=== PATIENT | female | born 1980 | race Caucasian/White ===

== ENCOUNTER 2020-02-13 08:55 | Emergency (ER) | payer MEDICAID ==
[~2020-02-13] VITALS: Ht 165.1 cm; Wt 95.3 kg
[2020-02-13 09:02] VITALS: BP 135/96
--- NOTE | 2020-02-13 09:09 | NUR ---
WAIT AT LOBBY
--- NOTE | 2020-02-13 09:35 | NUR ---
PT AMBULATE TO BED 12 WITH EVEN AND STEADY GAIT
--- NOTE | 2020-02-13 10:00 | NUR ---
PT PRESENTS WITH RIGHT HAND PAIN X 3 DAYS. PT STATES THAT IT STARTED TO SWELL, DENIES TRAUMA. RADIAL PULSE +3, CAP REFILL < 3 SEC. LIMITED ROM. PT AOX4, BREATHING EVEN AND UNLABORED, SKIN WARM AND DRY. BED IN LOWEST POSIITON, LOCKED, BED RAIL UPX1.
--- NOTE | 2020-02-13 10:15 | NUR ---
APPLIED MARGARET WRAP TO RIGHT WRIST WITHOUT ANY ISSUES
--- NOTE | 2020-02-13 10:26 | NUR ---
RADIAL PULSE + 3, CAP REFILL < 3 SEC AFTER WRAP BY EMT
[2020-02-13 10:30] VITALS: BP 135/96
== END 2020-02-13 10:30 | disposition home or self-care (01) ==
LOC: MED 08:55
DX: M79.89 Other specified soft tissue disorders (principal)
CPT/HCPCS: 81025; 99283

== ENCOUNTER 2022-02-25 18:52 | Emergency (ER) | payer MEDICAID ==
[~2022-02-25] VITALS: Ht 165.1 cm; Wt 71.7 kg
[2022-02-25 19:40] VITALS: BP 125/75
--- NOTE | 2022-02-25 19:43 | NUR ---
TO LOBBY A/W BED AMBULATORY
[2022-02-25 21:15] LABS: BASOPHILS % (AUTO) 0.5 % (0.0-2.0); EOSINOPHILS # (AUTO) 0.2 K/uL (0-0.4); EOSINOPHILS % (AUTO) 1.7 % (0.0-4.0); HEMATOCRIT 37.6 % (36-48); HEMOGLOBIN 12.8 g/dL (12.0-16.0); LYMPHOCYTES # (AUTO) 3.8 K/uL (2.5-16.5); MEAN CORPUSCULAR HEMOGLOBIN 29 pg (27-31); MEAN CORPUSCULAR HGB CONC 34 g/dL (33-37); MEAN CORPUSCULAR VOLUME 85.6 fL (80-94); MONOCYTES # (AUTO) 0.7 K/uL (0.8-1.0); NEUTROPHILS # (AUTO) 4.8 K/uL (1.8-7.7); NEUTROPHILS % (AUTO) 50.8 % (42.2-75.2); PLATELET COUNT (AUTO) 338 K/uL (140-450); RED BLOOD CELL COUNT(AUTO) 4.39 MIL/uL (4.20-5.40); RED CELL DISTRIBUTION WIDTH 12.3 % (11.6-13.7); WHITE BLOOD COUNT (AUTO) 9.5 K/uL (4.8-10.8)
--- NOTE | 2022-02-25 21:18 | NUR ---
PT TAKEN TO ULTRASOUND
[2022-02-25 21:30] LABS: ALBUMIN 3.9 g/dL (3.4-5.0); ANION GAP 8.9 (8-16); CARBON DIOXIDE 28.3 mmol/L (21-32); CREATININE 0.6 mg/dL (0.6-1.3); POTASSIUM 3.2 mmol/L (3.5-5.1); TOTAL BILIRUBIN 0.3 mg/dL (0.0-1.0)
--- NOTE | 2022-02-25 22:03 | NUR ---
Feliciano chaudhari in [facility] - 02/25/22 at 2204 by JANETT PT TKAEN TO BED 3
--- NOTE | 2022-02-25 22:05 | NUR ---
RECEIVED WITH C/O VAGINAL BLEEDING FOR 3 DAYS WITH LOWER ABD PAIN
--- NOTE | 2022-02-25 22:05 | NUR ---
PT TAKEN TO BED 3
--- NOTE | 2022-02-25 23:26 | NUR ---
Dr. Abbott examining patient.
[2022-02-25] MEDS ORDERED: IBUP-2213 PO (23:36)
[2022-02-25] MEDS ORDERED: ONDA8TAB87 PO (23:36)
[2022-02-25] MEDS ORDERED: MEDR10TA PO (23:36)
[2022-02-25 23:45] VITALS: BP 125/75
--- NOTE | 2022-02-25 23:45 | NUR ---
Patient discharged with v/s stable. Written and verbal after care instructions given and explained. Patient verbalized understanding. Ambulatory with steady gait. All questions addressed prior to discharge. Advised to follow up with PMD.
[2022-02-26 00:35] LABS: APPEARANCE,URINE CLEAR (CLEAR); BILIRUBIN,URINE NEGATIVE (NEGATIVE); BLOOD, URINE 3+ (NEGATIVE); COLOR,URINE YELLOW (YELLOW); LEUKOCYTE ESTERASE ,URINE NEGATIVE (NEGATIVE); NITRITE, URINE NEGATIVE (NEGATIVE); UGLUCOSE NEGATIVE (NEGATIVE)
[2022-02-26 00:51] LABS: RBC,URINE 0-5 /HPF (0-5); WBC,URINE 0-5 /HPF (0-5)
== END 2022-02-25 23:45 | disposition home or self-care (01) ==
LOC: MED 18:52
DX: N93.8 Other specified abnormal uterine and vaginal bleeding (principal); R11.0 Nausea
CPT/HCPCS: 36415; 76856; 80053; 81001; 81002; 81025; 84702; 85025; 86886; 86900; 86901; 87086; 99284; Q0092